=== PATIENT | female | born 1965 | race American Indian/Alaskan Native ===

== ENCOUNTER 2017-09-22 17:25 | Emergency (ER) | payer OTHER ==
[2017-09-22] MEDS ORDERED: ASPIRIN PO ONE (17:42)
--- NOTE | 2017-09-22 17:59 | Emergency Department Report ---
Chief Complaint: Arrhythmia/Palpitations Stated Complaint: HEART PALATATIONS/SOB/DIZZINESS - HPI History of Present Illness: 52-year-old female asked medical history hypertension presents with complaint of shortness of breath palpitations generalized weakness and syncopal episode earlier today. Patient is awake alert and oriented 3. Accompanied by at bedside. States that she has been feeling very weak and states that this intensified earlier today. Patient was standing in her living room and briefly fell back onto her couch possible brief loss consciousness. States that she feel her heart is racing. Patient states that she returned from a flight earlier this morning. States she was on a approximately 2-3 hour flight. States she has some cramping in her hands and legs. She also states she was recently treated for urinary tract infection by her primary doctor but cannot remember what the course of antibiotics was. She finished her antibiotics a few days ago. Denies sore throat and abdominal pain or diarrhea but does state she has been quite nauseous. Patient states she does feel short of breath at rest but does not have chest pain at this time but had chest pain earlier this week. - ROS Review of Systems: Malaise, weakness, episodes of chest pain at rest and shortness of breath at rest - Exam Vital Signs: Vital Signs 09/22/17 17:40 Temperature 98 F Pulse Rate 157 H Respiratory 20 Rate Blood Pressure 122/80 O2 Sat by Pulse 100 Oximetry Physical Exam: Heart tachycardic S1-S2. Lungs clear to auscultation. Awake alert and oriented 3 MSE screening note: Focused history and physical exam performed. Due to findings the following was ordered: Screening Assessment/Plan/Differential Dx: Tachycardia, shortness of breath, weakness, cause a syncopal episode 1- This initial assessment/diagnostic orders/clinical plan/ treatment(s) is/are subject to change based on pt's health status, clinical progression and re- assessment by fellow clinical providers in the ED. Further treatment and workup at subsequent clinical provers discretion. Patient/guardians urged not to elope from ED as their condition may be serious if not clinically assessed and managed. 2-lab work, urinalysis, EKG shows tachycardia, chest x-ray. As patient recently traveled will also order a d-dimer 3-as patient is severely tachycardic and notified charge nurse Reyna to place patient in main ED for further assessment and management ED Disposition for MSE Condition: Stable
[2017-09-22 18:11] LABS: Basophils # (Auto) 0.1 K/mm3 (0.0-0.1); Basophils % (Auto) 0.7 % (0.0-1.8); Eosinophils # (Auto) 0.1 K/mm3 (0.0-0.4); Eosinophils % (Auto) 0.7 % (0.0-4.3); Hematocrit 41.7 % (30.3-42.9); Hemoglobin 13.8 gm/dl (10.1-14.3); Lymphocytes # (Auto) 2.7 K/mm3 (1.2-5.4); Lymphocytes % (Auto) 35.9 % (13.4-35.0); Mean Corpuscular HGB Conc 33 % (30-34); Mean Corpuscular Hemoglobin 30 pg (28-32); Mean Corpuscular Volume 91 fl (79-97); Monocytes # (Auto) 0.7 K/mm3 (0.0-0.8); Monocytes % (Auto) 8.7 % (0.0-7.3); Platelet Count 248 K/mm3 (140-440); Red Blood Count 4.57 M/mm3 (3.65-5.03); Red Cell Distribution Width 13.2 % (13.2-15.2)
[2017-09-22] MEDS ORDERED: CARDIZEM IV ONE (18:22)
[2017-09-22] MEDS ORDERED: NACL 0.9% 1000 ML 1,000 ML IV ONE (18:22)
[2017-09-22 18:27] LABS: Bilirubin,Urine NEG (Negative); Blood,Urine MOD (Negative); Color,Urine Yellow (Yellow); Mucus,Urine FEW /HPF; Nitrite,Urine NEG (Negative); Protein,Urine <15 mg/dL mg/dL (Negative); Urobilinogen,Urine < 2.0 mg/dL (<2.0)
[2017-09-22 18:29] LABS: BUN/Creatinine Ratio 18; Blood Urea Nitrogen 14 mg/dL (7-17); Calcium 9.4 mg/dL (8.4-10.2); Hemolysis Index 4
--- NOTE | 2017-09-22 19:31 | Emergency Department Report ---
ED Shortness of Breath HPI - General Chief Complaint: Arrhythmia/Palpitations Stated Complaint: HEART PALATATIONS/SOB/DIZZINESS Time Seen by Provider: 09/22/17 18:14 Source: patient Mode of arrival: Wheelchair Limitations: No Limitations - History of Present Illness Initial Comments: She is a 52-year-old F [place] female who is presenting with palpitations shortness of breath and a syncopal episode. Patient states that 2 days ago she returned back from a trip from [place] via airplane. Patient has had several stressors as of late. The patient is buried her father in [place]. Today this morning patient started having palpitations elevated heart rate and shortness of breath. Patient denies chest pain. Patient denies any leg swelling nausea vomiting diarrhea cough headache. At triage patient's heart rate was noted to be 160. Patient states that she has had continuous shortness of breath throughout the day associated with palpitations and elevated heart rate MD Complaint: shortness of breath Pain Scale: 0 Improves With: nothing Worsens With: nothing Context: recent travel - Related Data Previous Rx's Medication Instructions Recorded Last Taken Type Metoprolol [Lopressor TAB] 12.5 mg PO BID 20 Days tablet 09/22/17 Unknown Rx Allergies Allergy/AdvReac Type Severity Reaction Status Date / Time codeine Allergy Angioedema Verified 09/22/17 17:42 ED Review of Systems ROS: Stated complaint: HEART PALATATIONS/SOB/DIZZINESS Other details as noted in HPI Comment: All other systems reviewed and negative ED Past Medical Hx - Past Medical History Hx Hypertension: Yes Additional medical history: MVP, elevated cholesterol - Social History Smoking Status: Never Smoker Substance Use Type: None - Medications Home Medications: Home Medications Medication Instructions Recorded Confirmed Last Taken Type Metoprolol [Lopressor TAB] 12.5 mg PO BID 20 Days tablet 09/22/17 Unknown Rx ED Physical Exam - General Limitations: No Limitations General appearance: alert, in no apparent distress - Head Head exam: Present: atraumatic, normocephalic - Eye Eye exam: Present: normal appearance - ENT ENT exam: Present: mucous membranes moist - Neck Neck exam: Present: normal inspection - Respiratory Respiratory exam: Present: normal lung sounds bilaterally. Absent: respiratory distress, wheezes, rales, rhonchi - Cardiovascular Cardiovascular Exam: Present: tachycardia. Absent: systolic murmur, diastolic murmur, rubs, gallop - GI/Abdominal GI/Abdominal exam: Present: soft, normal bowel sounds. Absent: distended, tenderness, guarding - Rectal Rectal exam: Present: deferred - Extremities Exam Extremities exam: Present: normal inspection - Back Exam Back exam: Present: normal inspection - Neurological Exam Neurological exam: Present: alert, oriented X3 - Psychiatric Psychiatric exam: Present: normal affect, normal mood - Skin Skin exam: Present: warm, dry, intact, normal color. Absent: rash ED Course Vital Signs 09/22/17 09/22/17 17:40 19:15 Temperature 98 F 97.7 F Pulse Rate 157 H 101 H Respiratory 20 18 Rate Blood Pressure 122/80 Blood Pressure 138/88 [Left] O2 Sat by Pulse 100 100 Oximetry ED Medical Decision Making - Lab Data Result diagrams: 09/22/17 17:53 09/22/17 17:53 Lab Results 09/22/17 09/22/17 09/22/17 Range/Units 17:53 17:53 17:53 WBC 7.6 (4.5-11.0) K/mm3 RBC 4.57 (3.65-5.03) M/mm3 Hgb 13.8 (10.1-14.3) gm/dl Hct 41.7 (30.3-42.9) % MCV 91 (79-97) fl MCH 30 (28-32) pg MCHC 33 (30-34) % RDW 13.2 (13.2-15.2) % Plt Count 248 (140-440) K/mm3 Lymph % (Auto) 35.9 H (13.4-35.0) % [place] % (Auto) 8.7 H (0.0-7.3) % Eos % (Auto) 0.7 (0.0-4.3) % Baso % (Auto) 0.7 (0.0-1.8) % Lymph # 2.7 (1.2-5.4) K/mm3 [place] # 0.7 (0.0-0.8) K/mm3 Eos # 0.1 (0.0-0.4) K/mm3 Baso # 0.1 (0.0-0.1) K/mm3 Seg Neutrophils % 54.0 (40.0-70.0) % Seg Neutrophils # 4.1 (1.8-7.7) K/mm3 D-Dimer < 135.00 (0-234) ng/mlDDU Sodium 142 (137-145) mmol/L Potassium 3.5 L (3.6-5.0) mmol/L Chloride 104.3 (98-107) mmol/L Carbon Dioxide 23 (22-30) mmol/L Anion Gap 18 mmol/L BUN 14 (7-17) mg/dL Creatinine 0.8 (0.7-1.2) mg/dL Estimated GFR > 60 ml/min BUN/Creatinine Ratio 18 % Glucose 138 H (65-100) mg/dL Lactic Acid (0.7-2.0) mmol/L Calcium 9.4 (8.4-10.2) mg/dL Total Creatine Kinase (30-135) units/L Troponin T < 0.010 (0.00-0.029) ng/mL Urine Color (Yellow) Urine Turbidity (Clear) Urine pH (5.0-7.0) Ur Specific [place] (1.003-1.030) Urine Protein (Negative) mg/dL Urine Glucose (UA) (Negative) mg/dL Urine Ketones (Negative) mg/dL Urine Blood (Negative) Urine Nitrite (Negative) Urine Bilirubin (Negative) Urine Urobilinogen (<2.0) mg/dL Ur Leukocyte Esterase (Negative) Urine WBC (Auto) (0.0-6.0) /HPF Urine RBC (Auto) (0.0-6.0) /HPF U Epithel Cells (Auto) (0-13.0) /HPF Urine Mucus /HPF 09/22/17 09/22/17 09/22/17 Range/Units 18:00 18:00 Unknown WBC (4.5-11.0) K/mm3 RBC (3.65-5.03) M/mm3 Hgb (10.1-14.3) gm/dl Hct (30.3-42.9) % MCV (79-97) fl MCH (28-32) pg MCHC (30-34) % RDW (13.2-15.2) % Plt Count (140-440) K/mm3 Lymph % (Auto) (13.4-35.0) % [place] % (Auto) (0.0-7.3) % Eos % (Auto) (0.0-4.3) % Baso % (Auto) (0.0-1.8) % Lymph # (1.2-5.4) K/mm3 [place] # (0.0-0.8) K/mm3 Eos # (0.0-0.4) K/mm3 Baso # (0.0-0.1) K/mm3 Seg Neutrophils % (40.0-70.0) % Seg Neutrophils # (1.8-7.7) K/mm3 D-Dimer (0-234) ng/mlDDU Sodium (137-145) mmol/L Potassium (3.6-5.0) mmol/L Chloride (98-107) mmol/L Carbon Dioxide (22-30) mmol/L Anion Gap mmol/L BUN (7-17) mg/dL Creatinine (0.7-1.2) mg/dL Estimated GFR ml/min BUN/Creatinine Ratio % Glucose (65-100) mg/dL Lactic Acid 1.30 (0.7-2.0) mmol/L Calcium (8.4-10.2) mg/dL Total Creatine Kinase 94 (30-135) units/L Troponin T (0.00-0.029) ng/mL Urine Color Yellow (Yellow) Urine Turbidity Clear (Clear) Urine pH 6.0 (5.0-7.0) Ur Specific [place] 1.008 (1.003-1.030) Urine Protein <15 mg/dl (Negative) mg/dL Urine Glucose (UA) Neg (Negative) mg/dL Urine Ketones Neg (Negative) mg/dL Urine Blood Mod (Negative) Urine Nitrite Neg (Negative) Urine Bilirubin Neg (Negative) Urine Urobilinogen < 2.0 (<2.0) mg/dL Ur Leukocyte Esterase Sm (Negative) Urine WBC (Auto) 4.0 (0.0-6.0) /HPF Urine RBC (Auto) 3.0 (0.0-6.0) /HPF U Epithel Cells (Auto) 1.0 (0-13.0) /HPF Urine Mucus Few /HPF - EKG Data -: EKG Interpreted by Ne - EKG Data 09/22/17 19:30 EKG shows a rate of 145. There are no P waves present this could represent a junctional tachycardia but also could be atrial fibgoing fast enough that it appears relatively relatively regular. Normal axis normal intervals no ST segment changes time of interpretation is 1739 - Medical Decision Making Patient is a 52-year-old [place] female who is presenting with palpitations and elevated heart rate. Patient's rhythm is junctional tachycardia. This could also be interpreted as atrial fibrillation when I use calipers there was the slightest variation in the R to R animals. My mind set was 2 give the patient some diltiazem and try to slow her down to see what her underlying rhythm was however before given this medication patient spontaneously converted to sinus rhythm with a rate of 81 with no abdominal house to the intervals axis or ST segments. This is interpreted 2024. Patient does have a history of mitral valve prolapse and this may be a factor she has not seen a singing telegram performer in some time. Patient will be started on a low-dose beta phuc will be discharged home with cardiology follow-up Critical Care Time: Yes Critical care time in (mins) excluding proc time.: 30 Critical care attestation.: If time is entered above; I have spent that time in minutes in the direct care of this critically ill patient, excluding procedure time. ED Disposition Clinical Impression: Junctional tachycardia Disposition: [id number] TO HOME OR SELFCARE Is pt being admited?: No Does the pt Need Aspirin: No Condition: Stable Instructions: Supraventricular Tachycardia (ED), Palpitations (ED) Prescriptions: Metoprolol [Lopressor TAB] 12.5 mg PO BID 20 Days tablet Referrals: LEONARDO BRITO MD [Staff Physician] - 3-5 Days
--- NOTE | 2017-09-22 20:23 | XRay Report ---
FINAL REPORT PROCEDURE: XR CHEST 1V AP TECHNIQUE: Chest radiograph anteroposterior view. CPT 79745 HISTORY: syncope COMPARISON: No prior studies are available for comparison. FINDINGS: Heart: Normal. Mediastinum/Vessels: Normal. Lungs/Pleural space: Normal. Bony thorax: No acute osseous abnormality. Life support devices: None. IMPRESSION: No acute cardiopulmonary abnormality.
[2017-09-22 21:38] VITALS: BP 116/79
== END 2017-09-22 21:27 | disposition home or self-care (01) ==
LOC: ED 17:25
DX: I47.1 Supraventricular tachycardia (principal); I10 Essential (primary) hypertension
CPT/HCPCS: 36415; 71045; 80048; 81001; 82140; 82550; 84484; 85025; 85379; 93005; 93010; 96360; 99291; J7030